=== PATIENT | female | born 1960 | race Caucasian/White ===

== ENCOUNTER 2023-05-12 19:27 | Inpatient (IN) | payer BC ==
[~2023-05-12] VITALS: Ht 180.3 cm; Wt 79.5 kg
--- NOTE | 2023-05-12 19:44 | NUR ---
Patient placed back in lobby after EKG. MD and Charge nurse aware of patient EKG.
[2023-05-12 19:47] LABS: BASOPHILS % (AUTO) 0.3 % (0-1); EOSINOPHILS # (AUTO) 0.2 X10'3 (0-0.9); EOSINOPHILS % (AUTO) 2.8 % (0-6); HEMATOCRIT 41.3 % (35.0-45.0); LYMPHOCYTES # (AUTO) 1.5 X10'3 (1.1-4.8); LYMPHOCYTES % (AUTO) 19.4 % (21-51); MEAN CORPUSCULAR HEMOGLOBIN 31.7 PG (27.0-31.0); MEAN CORPUSCULAR VOLUME 93.2 FL (78-98); MEAN PLATELET VOLUME 9.5 FL (7.4-10.4); MONOCYTES # (AUTO) 0.6 X10'3 (0-0.9); MONOCYTES % (AUTO) 8.5 % (2-12); NEUTROPHILS # (AUTO) 5.3 X10'3 (1.8-7.7); PLATELET COUNT 183 X10'3 (140-440); RED BLOOD COUNT 4.43 X10'6 (4.20-5.60); RED CELL DISTRIBUTION WIDTH 13.4 % (11.5-14.5); WHITE BLOOD COUNT 7.6 X10'3 (4.5-11.0)
[2023-05-12 20:08] LABS: ALANINE AMINOTRANSFERASE 35 U/L (12-78); ALBUMIN/GLOBULIN RATIO 1.1 (1.1-1.5); ALKALINE PHOSPHATASE 53 IU/L (46-116); ANION GAP 7 (8-16); ASPARTATE AMINO TRANSFERASE 31 U/L (10-37); BILIRUBIN,TOTAL 0.3 MG/DL (0.1-1.0); BLOOD UREA NITROGEN 21 MG/DL (7-18); BUN/CREATININE RATIO 23.3 (10.0-20.0); CALCIUM 9.6 MG/DL (8.5-10.1); CHLORIDE 105 MMOL/L (99-107); GLUCOSE 106 MG/DL (70-104); POTASSIUM 3.5 MMOL/L (3.5-5.1); PRO BRAIN NATRIURETIC PEPTIDE 337 PG/ML (0-125); SODIUM 142 MMOL/L (135-145); TOTAL CARBON DIOXIDE 29.8 MMOL/L (24-32); TOTAL PROTEIN 7.8 G/DL (6.4-8.2); eCRCL 72 ML/MIN; eGFR 63 ML/MIN
[2023-05-12] MEDS ORDERED: normal saline 1000ml 1,000 ML IV ONE (22:30)
[2023-05-12] MEDS: metoprolol tartrate 1mg/ml inj IV SCH ×3 (22:49→23:25)
[2023-05-13] MEDS: metoprolol tartrate 1mg/ml inj IV SCH ×4 (00:17→04:04)
[2023-05-13] MEDS ORDERED: diltiazem-D5W 125mg/125ml 125 ML IV SCH (00:45)
[2023-05-13] MEDS ORDERED: diltiazem-NS 100mg/100ml 100 ML IV SCH ×2 (00:45→03:15)
--- NOTE | 2023-05-13 00:58 | NUR ---
PT IS A&O X4, PRESENTS FROM TRIAGE. pT CONNECTED TO TELE MONITOR. PIV ESTABLISHED. pT WAS GIVEN 3 DOSES OF METROPLOL FOR AFIB, UNSUCCESSFUL, MD AWARE. FAMILY AT BEDSIDE.
[2023-05-13] MEDS ORDERED: magnesium hydroxide 30ml (MOM) UD suspension PO PRN (03:15)
[2023-05-13] MEDS ORDERED: mag hydrox/Alum hydrox/simeth 30ml oral suspension PO PRN (03:15)
[2023-05-13] MEDS ORDERED: diphenhydrAMINE 50 mg/ml inj IV PRN (03:15)
[2023-05-13] MEDS ORDERED: ondansetron 4mg rapidly disintigrating tab PO PRN (03:15)
[2023-05-13] MEDS ORDERED: acetaminophen 650mg rectal suppository RC PRN (03:15)
[2023-05-13] MEDS ORDERED: HYDROcodone/acetaminophen 10/325mg tab PO PRN (03:15)
[2023-05-13] MEDS ORDERED: diphenhydrAMINE 25mg capsule PO PRN (03:15)
[2023-05-13] MEDS ORDERED: ondansetron/PF 4mg/2ml inj IV PRN (03:15)
[2023-05-13] MEDS ORDERED: morphine 2 MG/ML inj. syringe IV PRN ×2 (03:15)
[2023-05-13] MEDS ORDERED: HYDROcodone/acetaminophen 5mg/325mg tablet PO PRN (03:15)
[2023-05-13] MEDS ORDERED: bisacodyl 10mg suppository rectal RC PRN (03:15)
[2023-05-13] MEDS ORDERED: acetaminophen 325mg tablet PO PRN ×2 (03:15)
[2023-05-13] MEDS ORDERED: heparin 10,000 units/1 ML INJ IV PRN (03:20)
[2023-05-13] MEDS ORDERED: heparin 25,000 UNIT/250ml bag 250 ML IV PRN (03:20)
[2023-05-13] MEDS ORDERED: heparin 10,000 units/1 ML INJ IV ONE (03:20)
[2023-05-13] MEDS: sodium chloride 0.45% 1,000 ML IV SCH ×3 (04:01→23:15)
[2023-05-13] MEDS: docusate sod 100mg capsule PO SCH ×2 (07:46→21:22)
[2023-05-13] MEDS: pantoprazole 40mg Tablet.DR PO SCH (07:46)
[2023-05-13] MEDS: amLODIPine 5mg tablet PO SCH (07:47)
[2023-05-13 08:01] LABS: BASOPHILS % (AUTO) 0.3 % (0-1); EOSINOPHILS # (AUTO) 0.2 X10'3 (0-0.9); EOSINOPHILS % (AUTO) 2.5 % (0-6); HEMOGLOBIN 14.3 g/dl (12.0-16.0); LYMPHOCYTES # (AUTO) 1.1 X10'3 (1.1-4.8); LYMPHOCYTES % (AUTO) 16.7 % (21-51); MEAN CORPUSCULAR HGB CONC 33.1 g/dL (33.0-36.5); MEAN CORPUSCULAR VOLUME 93.6 FL (78-98); MEAN PLATELET VOLUME 10.1 FL (7.4-10.4); MONOCYTES # (AUTO) 0.7 X10'3 (0-0.9); MONOCYTES % (AUTO) 9.9 % (2-12); NEUTROPHILS # (AUTO) 4.8 X10'3 (1.8-7.7); NEUTROPHILS % (AUTO) 70.6 % (42-75); PLATELET COUNT 191 X10'3 (140-440); RED CELL DISTRIBUTION WIDTH 13.3 % (11.5-14.5); WHITE BLOOD COUNT 6.8 X10'3 (4.5-11.0)
[2023-05-13 08:29] LABS: CREATINE KINASE 119 U/L (26-192); MAGNESIUM 2.1 MG/DL (1.5-2.4); PHOSPHORUS 3.2 MG/DL (2.3-4.5); PRO BRAIN NATRIURETIC PEPTIDE 775 PG/ML (0-125); THYROID STIMULATING HORMONE 3.59 ulU/ml (0.34-4.50)
[2023-05-13 08:41] LABS: HEMOGLOBIN A1C 5.5 % (4.5-6.2); LIPASE 22 U/L (16-77)
[2023-05-13 09:47] LABS: APTT 29 SECONDS (22-32); D-DIMER 0.32 MG/L FEU (0-0.50)
[2023-05-13 09:51] LABS: PROTHROMBIN TIME 10.4 SECONDS (9.0-12.0)
--- NOTE | 2023-05-13 11:13 | NUR ---
Spoke with MD Adrian regarding heparin gtt order. notified bolus was given, but gtt not started. Pt's rate now in low 60's at this time. stated to hold off on hep gtt and get 12 lead. Will consider D/C Dilt drip upon bedside eval.
[2023-05-13] MEDS: diltiazem SR 60mg capsule (twice daily) PO SCH ×2 (12:19→21:22)
[2023-05-13] MEDS ORDERED: ALEN70TA80 PO (12:46)
[2023-05-13 15:00] VITALS: BP 119/80; PULSE 68; RESP 13; TEMP 97.6; O2SAT 97
--- NOTE | 2023-05-13 15:26 | NUR ---
pt refused MRSA swab
[2023-05-13 15:43] VITALS: RESP 18; O2SAT 98
--- NOTE | 2023-05-13 15:51 | NUR ---
patient refused mrsaswab and skin check states skin is fine there is no bruising, scratches scrapes or open areas
[2023-05-13 18:00] VITALS: BP 116/59; PULSE 55; RESP 16; TEMP 97.7; O2SAT 97
--- NOTE | 2023-05-13 18:18 | NUR ---
Problems reprioritized. Patient report given, questions answered & plan of care reviewed with Roselia NIETO. Patient resting in bed in no acute distress.
[2023-05-13 20:00] VITALS: RESP 16; O2SAT 97
[2023-05-13] MEDS ORDERED: temazepam 15mg capsule PO PRN (21:00)
[2023-05-13 22:00] VITALS: BP 116/61; PULSE 57; RESP 16; TEMP 97.2; O2SAT 97
[2023-05-14 02:00] VITALS: BP 114/60; PULSE 70; RESP 17; TEMP 98.2; O2SAT 97
--- NOTE | 2023-05-14 06:13 | NUR ---
Problems reprioritized. Patient report given to Meghan NIETO questions answered & plan of care reviewed with .
--- NOTE | 2023-05-14 06:17 | NUR ---
Problems reprioritized. Patient report given to Juany DUNNE questions answered & plan of care reviewed with .
[2023-05-14 07:00] VITALS: BP 119/60; PULSE 68; RESP 20; TEMP 97.2; O2SAT 95
[2023-05-14 07:55] LABS: BASOPHILS % (AUTO) 0.6 % (0-1); EOSINOPHILS # (AUTO) 0.2 X10'3 (0-0.9); HEMATOCRIT 38.1 % (35.0-45.0); HEMOGLOBIN 12.8 g/dl (12.0-16.0); LYMPHOCYTES % (AUTO) 18.7 % (21-51); MEAN CORPUSCULAR HEMOGLOBIN 31.4 PG (27.0-31.0); MEAN CORPUSCULAR HGB CONC 33.6 g/dL (33.0-36.5); MEAN CORPUSCULAR VOLUME 93.5 FL (78-98); MEAN PLATELET VOLUME 9.6 FL (7.4-10.4); MONOCYTES # (AUTO) 0.6 X10'3 (0-0.9); NEUTROPHILS # (AUTO) 3.7 X10'3 (1.8-7.7); NEUTROPHILS % (AUTO) 65.7 % (42-75); PLATELET COUNT 157 X10'3 (140-440); RED BLOOD COUNT 4.07 X10'6 (4.20-5.60); RED CELL DISTRIBUTION WIDTH 13.5 % (11.5-14.5); WHITE BLOOD COUNT 5.6 X10'3 (4.5-11.0)
[2023-05-14] MEDS: pantoprazole 40mg Tablet.DR PO SCH (07:55)
[2023-05-14] MEDS: docusate sod 100mg capsule PO SCH (07:55)
[2023-05-14] MEDS: diltiazem SR 60mg capsule (twice daily) PO SCH (07:55)
[2023-05-14] MEDS: amLODIPine 5mg tablet PO SCH (07:56)
[2023-05-14 08:00] VITALS: RESP 20; O2SAT 95
[2023-05-14 08:19] LABS: ALANINE AMINOTRANSFERASE 24 U/L (12-78); ALBUMIN 3.2 G/DL (3.4-5.0); ALBUMIN/GLOBULIN RATIO 0.9 (1.1-1.5); ALKALINE PHOSPHATASE 45 IU/L (46-116); ANION GAP 5 (8-16); ASPARTATE AMINO TRANSFERASE 22 U/L (10-37); BILIRUBIN,TOTAL 0.6 MG/DL (0.1-1.0); BLOOD UREA NITROGEN 20 MG/DL (7-18); BUN/CREATININE RATIO 23.5 (10.0-20.0); CALCIUM 8.9 MG/DL (8.5-10.1); CHLORIDE 106 MMOL/L (99-107); CHOL/HDL RATIO 4.4 (0.00-4.99); CHOLESTEROL 258 MG/DL (0-200); CREATININE 0.85 MG/DL (0.40-0.90); GLUCOSE 104 MG/DL (70-104); HDL CHOLESTEROL 59 MG/DL (35-60); LDL CHOLESTEROL 162 MG/DL (50-100); SODIUM 140 MMOL/L (135-145); TOTAL CARBON DIOXIDE 28.7 MMOL/L (24-32); TOTAL PROTEIN 6.8 G/DL (6.4-8.2); TRIGLYCERIDES 129 MG/DL (20-135); eCRCL 76 ML/MIN; eGFR 68 ML/MIN
[2023-05-14] MEDS: sodium chloride 0.45% 1,000 ML IV SCH (09:15)
[2023-05-14 11:00] VITALS: BP 117/62; PULSE 62; RESP 14; TEMP 97.7; O2SAT 96
--- NOTE | 2023-05-14 14:54 | NUR ---
Page Sent promotional table spacer PAGER ID: [phone] MESSAGE: [id number] Yara Oneal. Patient waiting for DC orders. [email or web address] (65 character message out of a maximum of [phone])
[2023-05-14] MEDS ORDERED: CARSR60C PO (14:56)
[2023-05-14] MEDS ORDERED: ASPI81TA52 PO (14:56)
--- NOTE | 2023-05-14 16:57 | NUR ---
Patient was DC to home. RX were sent to [facility] in [place]. PIV x2 were removed with cannulas intact. DC instructions and warning s/s were reviewed with patient and she verbalized understanding. All questions were answered to satisfaction. PAtient choose to walk herself out. PAtient was alert, oriented, and appropriate at time of DC
== END 2023-05-14 15:41 | disposition home or self-care (01) | DRG 309 ==
LOC: ER 19:28 → ED HOLD 05-13 03:17 → PCU 3S 05-13 13:45
PROVIDERS: ADMIT Family Medicine; ATTEND Family Medicine
DX: I48.91 Unspecified atrial fibrillation (principal); N17.9 Acute kidney failure, unspecified; M81.0 Age-related osteoporosis without current pathological fracture; I10 Essential (primary) hypertension; Z88.0 Allergy status to penicillin; Z79.83 Long term (current) use of bisphosphonates
CPT/HCPCS: 36415; 71045; 80053; 80061; 82550; 83036; 83690; 83735; 83880; 84100; 84443; 84484; 85025; 85379; 85610; 85730; 93306; 99285; G0378; J1644; J3490; J7030

== ENCOUNTER 2023-05-17 15:44 | Emergency (ER) | payer BC ==
[~2023-05-17] VITALS: Ht 180.3 cm; Wt 79.5 kg
[~2023-05-17 15:44] MED LIST: ALEN70TA80 PO; ASPI81TA52 PO; CARSR60C PO
[2023-05-17 16:01] VITALS: TEMP 98.6
[2023-05-17 16:14] LABS: BASOPHILS % (AUTO) 0.3 % (0-1); EOSINOPHILS # (AUTO) 0.1 X10'3 (0-0.9); EOSINOPHILS % (AUTO) 2.1 % (0-6); HEMATOCRIT 39.5 % (35.0-45.0); HEMOGLOBIN 13.3 g/dl (12.0-16.0); LYMPHOCYTES % (AUTO) 13.9 % (21-51); MEAN CORPUSCULAR HEMOGLOBIN 31.5 PG (27.0-31.0); MEAN CORPUSCULAR HGB CONC 33.5 g/dL (33.0-36.5); MEAN CORPUSCULAR VOLUME 93.8 FL (78-98); MONOCYTES # (AUTO) 0.7 X10'3 (0-0.9); MONOCYTES % (AUTO) 9.6 % (2-12); NEUTROPHILS # (AUTO) 5.1 X10'3 (1.8-7.7); NEUTROPHILS % (AUTO) 74.1 % (42-75); PLATELET COUNT 183 X10'3 (140-440); RED BLOOD COUNT 4.22 X10'6 (4.20-5.60); RED CELL DISTRIBUTION WIDTH 13.2 % (11.5-14.5); WHITE BLOOD COUNT 6.9 X10'3 (4.5-11.0)
[2023-05-17 16:26] LABS: ALANINE AMINOTRANSFERASE 30 U/L (12-78); ALBUMIN 3.6 G/DL (3.4-5.0); ALBUMIN/GLOBULIN RATIO 1.1 (1.1-1.5); ALKALINE PHOSPHATASE 53 IU/L (46-116); ANION GAP 6 (8-16); ASPARTATE AMINO TRANSFERASE 21 U/L (10-37); BILIRUBIN,TOTAL 0.3 MG/DL (0.1-1.0); BLOOD UREA NITROGEN 21 MG/DL (7-18); BUN/CREATININE RATIO 19.8 (10.0-20.0); CHLORIDE 106 MMOL/L (99-107); CREATININE 1.06 MG/DL (0.40-0.90); GLUCOSE 147 MG/DL (70-104); POTASSIUM 3.8 MMOL/L (3.5-5.1); SODIUM 140 MMOL/L (135-145); TOTAL CARBON DIOXIDE 27.7 MMOL/L (24-32); eCRCL 61 ML/MIN; eGFR 52 ML/MIN
[2023-05-17 16:34] LABS: PRO BRAIN NATRIURETIC PEPTIDE 119 PG/ML (0-125)
[2023-05-17 17:44] VITALS: BP 126/75; PULSE 83; RESP 16; O2SAT 95
[2023-05-17] MEDS ORDERED: APIX5TAB3 PO (18:13)
[2023-05-17] MEDS ORDERED: DILT-36 PO (18:13)
== END 2023-05-17 18:33 | disposition home or self-care (01) ==
LOC: ER 15:44
DX: I48.91 Unspecified atrial fibrillation (principal); Z88.0 Allergy status to penicillin; Z79.899 Other long term (current) drug therapy
CPT/HCPCS: 36415; 80053; 83880; 84484; 85025; 93005; 99284